=== PATIENT | female | born 1965 | race Caucasian/White ===

== ENCOUNTER → 2023-12-14 06:54 | Outpatient (REF) | payer BC, SELFPAY ==
[2023-12-14 07:50] LABS: % Basophils 0.4 % (0-2); % Eosinophils 4.1 % (0-6); % Immature Granulocytes 0.2 % (0-0.5); % Lymphocytes 31.8 % (20.5-51.1); % Monocytes 6.6 % (1.7-9.3); % Neutrophils 56.9 % (42.2-75.2); Absolute Eosinophils 0.2 10^3/uL (0-0.7); Absolute Lymphocytes 1.6 10^3/uL (1.2-3.4); Absolute Monocytes 0.3 10^3/uL (0.1-0.6); Absolute Neutrophils 2.8 10^3/uL (1.4-6.5); Hematocrit 37.7 % (37.0-47.0); Mean Corp Hgb Conc. 34.5 g/dL (33.0-37.0); Mean Corpuscular Hgb 32.3 pg (27.0-31.0); Mean Corpuscular Volume 93.8 fL (81.0-99.0); Mean Platelet Volume 9.1 fL (7.4-10.4); Nucleated Red Blood Cells % 0 %; Platelet Count 292 10^3/uL (130-400); Red Blood Cell Count 4.02 10^6/uL (4.20-5.40); White Blood Cell Count 4.9 10^3/uL (4.8-10.8)
[2023-12-14 08:16] LABS: ALT (SGPT) 14 U/L (0-35); AST (SGOT) 26 U/L (14-36); Albumin 4.5 g/dl (3.5-5.0); Alkaline Phosphatase 81 U/L (38-126); Blood Urea Nitrogen 15 mg/dl (7-17); Calcium 9.3 mg/dl (8.4-10.2); Carbon Dioxide 25 mmol/L (22-30); Chloride 105 mmol/L (98-107); Glucose 92 mg/dl (70-99); HDL Cholesterol 90 mg/dl; LDL Cholesterol, Calculated 133 mg/dl; Potassium 4.2 mmol/L (3.5-5.1); Sodium 141 mmol/L (135-145); Total Cholesterol 249 mg/dl (50-199); Total Protein 7.2 g/dl (6.3-8.2); Triglyceride 133 mg/dl (10-149); Very Low Density Lipoprotein 26 mg/dl (0-30); eGFR > 60.00
[2023-12-14 08:43] LABS: TSH Reflex To Free T4 3.81 uIU/ml (0.47-4.68)
[2023-12-14 08:54] LABS: Glycohemoglobin (HgbA1c) 5.5 % (4.0-5.6)
== END ==
LOC: REG 06:54
PROVIDERS: ATTENDING PHYSICIAN Physician Assistant Medical; FAMILY PHYSICIAN Family Medicine
DX: E66.9 Obesity, unspecified (principal); Z68.31 Body mass index [BMI] 31.0-31.9, adult; R73.03 Prediabetes; Z13.220 Encounter for screening for lipoid disorders
CPT/HCPCS: 36415; 80053; 80061; 83036; 84443; 85025

== ENCOUNTER → 2024-03-27 16:21 | Outpatient (REF) | payer BC, SELFPAY | LOC: WDC 16:21 | PROVIDERS: ATTENDING PHYSICIAN Nurse Practitioner Family; FAMILY PHYSICIAN Physician Assistant Medical | DX: Z12.31 Encounter for screening mammogram for malignant neoplasm of breast (principal) | CPT/HCPCS: 77063; 77067 ==

== ENCOUNTER → 2024-07-08 10:26 | Outpatient (REF) | payer BC, SELFPAY | LOC: RAD 10:26 | PROVIDERS: ATTENDING PHYSICIAN Student in an Organized Health Care Education/Training Program | DX: S93.409A Sprain of unspecified ligament of unspecified ankle, initial encounter (principal) | CPT/HCPCS: 73610 ==

== ENCOUNTER → 2024-09-10 16:33 | Outpatient (REF) | payer BC, SELFPAY ==
[2024-09-15 01:24] LABS: HPV, High Risk Not Detected; HPV, High Risk Source Cervical
== END ==
LOC: CPAP 16:33
PROVIDERS: ATTENDING PHYSICIAN Advanced Practice Midwife
DX: Z01.419 Encounter for gynecological examination (general) (routine) without abnormal findings (principal); Z11.51 Encounter for screening for human papillomavirus (HPV)
CPT/HCPCS: 87624

== ENCOUNTER → 2025-03-31 06:47 | Outpatient (REF) | payer BC, SELFPAY ==
[2025-03-31 07:39] LABS: Hematocrit 40.3 % (37.0-47.0); Hemoglobin 13.6 g/dL (12.0-16.0); Mean Corp Hgb Conc. 33.7 g/dL (33.0-37.0); Mean Corpuscular Volume 95.3 fL (81.0-99.0); Nucleated Red Blood Cells % 0 %; Platelet Count 278 10^3/uL (130-400); Red Cell Dist. Width 13.7 % (11.5-14.5)
[2025-03-31 08:08] LABS: ALT (SGPT) 17 U/L (0-35); AST (SGOT) 21 U/L (14-36); Albumin 4.5 g/dl (3.5-5.0); Alkaline Phosphatase 83 U/L (38-126); Blood Urea Nitrogen 18 mg/dl (7-17); Calcium 9.0 mg/dl (8.4-10.2); Carbon Dioxide 25 mmol/L (22-30); Chloride 106 mmol/L (98-107); Glucose 97 mg/dl (70-99); HDL Cholesterol 85 mg/dl; LDL Cholesterol, Calculated 116 mg/dl; Potassium 4.2 mmol/L (3.5-5.1); Sodium 137 mmol/L (135-145); Total Protein 7.8 g/dl (6.3-8.2); Very Low Density Lipoprotein 39 mg/dl (0-30); eGFR > 60.00
== END ==
LOC: REG 06:47
PROVIDERS: ATTENDING PHYSICIAN Physician Assistant Medical
DX: Z00.00 Encounter for general adult medical examination without abnormal findings (principal); Z82.49 Family history of ischemic heart disease and other diseases of the circulatory system; E66.9 Obesity, unspecified; R73.03 Prediabetes; Z13.220 Encounter for screening for lipoid disorders
CPT/HCPCS: 36415; 80053; 80061; 84443; 85025

== ENCOUNTER → 2025-03-31 07:16 | Outpatient (REF) | payer BC, SELFPAY | LOC: WDC 07:16 | PROVIDERS: ATTENDING PHYSICIAN Physician Assistant Medical | DX: Z12.31 Encounter for screening mammogram for malignant neoplasm of breast (principal) | CPT/HCPCS: 77063; 77067 ==